=== PATIENT | male | born 1960 | race Caucasian/White ===

== ENCOUNTER 2020-06-04 16:32 | Outpatient (CLI) | payer OTHER, SELFPAY ==
[2020-06-04 16:53] LABS: Creatinine Urine 106.22 mg/dL (40-278); MALB Creatinine Ratio 12.2 mg/g (0-30); Microalbumin Urine Random < 13.0 mg/L
[2020-06-04 17:21] LABS: Alanine Aminotransferase 23 U/L (16-63); Albumin Level 4.5 g/dL (3.4-5.0); Alkaline Phosphatase 76 U/L (46-116); Anion Gap 8 mmol/L (8-16); Aspartate Amino Transferase 16 U/L (15-37); Bilirubin,Total 0.4 mg/dL (0.00-1.00); Blood Urea Nitrogen 17 mg/dL (7-18); Calcium 9.5 mg/dL (8.5-10.1); Carbon Dioxide 30 mmol/L (21-32); Chloride 102 mmol/L (98-108); Estimated Glomerular Filt Rate > 60; Glucose 98 mg/dL (70-99); Hemoglobin A1C 7.1 % (<5.7); Osmolality Calculated 291 mOsm/kg (285-295); Potassium 4.4 mmol/L (3.5-5.1); Sodium 140 mmol/L (136-145); Total Protein 6.9 g/dL (6.4-8.2)
== END 2020-06-04 16:33 | disposition home or self-care (01) ==
LOC: CHSLAB 16:34
PROVIDERS: PCP Nurse Practitioner Family; Visit Provider Nurse Practitioner Family
DX: E11.9 Type 2 diabetes mellitus without complications (principal)
CPT/HCPCS: 36415; 80053; 82043; 83036

== ENCOUNTER 2021-10-03 08:44 | Outpatient (CLI) | payer OTHER, SELFPAY ==
[2021-10-03 09:13] LABS: Basophils Absolute Auto 0.05 K/mm3 (0.00-0.10); Basophils Percent Auto 0.9 % (0.0-1.0); Eosinophils Percent Auto 3.6 % (1.0-6.0); Hematocrit 43.5 % (40.0-54.0); Hemoglobin 14.5 g/dL (14.0-18.0); Immature Granulocyte Absolute 0.01 K/mm3 (0.00-0.00); Immature Granulocyte Percent A 0.2 % (0.0-0.0); Lymphocytes Absolute Auto 1.45 K/mm3 (1.10-4.50); Mean Corpuscular HGB Conc 33.3 g/dL (32.0-36.0); Mean Corpuscular Hemoglobin 30.6 pg (27.0-31.0); Mean Corpuscular Volume 91.8 fL (78.0-102.0); Mean Platelet Volume 11.4 fl (8.7-11.0); Monocytes Absolute Auto 0.57 K/mm3 (0.10-0.90); Monocytes Percent Auto 10.2 % (2.0-11.0); Neutrophils Absolute Auto 3.3 K/mm3 (1.7-7.2); Neutrophils Percent Auto 59.1 % (50.0-70.0); Platelet Count Result 172 K/mm3 (150-420); Red Blood Count 4.74 M/mm3 (4.70-6.10); White Blood Count 5.6 K/mm3 (4.8-10.8)
[2021-10-03 09:25] LABS: Hemoglobin A1C 7.1 % (<5.7)
[2021-10-03 09:39] LABS: Alanine Aminotransferase 32 U/L (16-63); Albumin Level 4.1 g/dL (3.4-5.0); Alkaline Phosphatase 80 U/L (46-116); Anion Gap 6 mmol/L (8-16); Aspartate Amino Transferase 18 U/L (15-37); Bilirubin,Total 0.5 mg/dL (0.00-1.00); Blood Urea Nitrogen 14 mg/dL (7-18); Calcium 9.2 mg/dL (8.5-10.1); Carbon Dioxide 30 mmol/L (21-32); Chloride 103 mmol/L (98-108); Estimated Glomerular Filt Rate > 60; Glucose 221 mg/dL (70-99); Osmolality Calculated 295 mOsm/kg (285-295); Potassium 4.4 mmol/L (3.5-5.1); Sodium 139 mmol/L (136-145); Total Protein 6.8 g/dL (6.4-8.2)
== END 2021-10-03 08:45 | disposition home or self-care (01) ==
LOC: CHSLAB 08:45
PROVIDERS: PCP Nurse Practitioner Family; Visit Provider Nurse Practitioner Family
DX: E11.9 Type 2 diabetes mellitus without complications (principal); I10 Essential (primary) hypertension
CPT/HCPCS: 36415; 80053; 83036; 85025

== ENCOUNTER 2022-09-23 12:45 | Emergency (ER) | payer OTHER, SELFPAY ==
--- NOTE | 2022-09-23 13:21 | ED.WOUNDLAC ---
HPI - Wound/Laceration General Chief Complaint: Wound/Laceration Stated Complaint: left forearm lac Time Seen by Provider: 09/23/22 13:15 History of Present Illness HPI narrative: Pt stabbed self with utility knife at work. Pt on blood thinners so said bled quite a bit but now stopped. Unsure of last tetanus shot. Pt denies numbness or weakness in hand on right. Related Data Home Medications Medication Instructions Recorded Confirmed aspirin 81 mg tablet,delayed 81 mg PO DAILY 03/14/19 09/23/22 release (Adult Low Dose Aspirin) warfarin 6 mg tablet (Coumadin) 6 mg PO DAILY 03/14/19 09/23/22 Allergies Allergy/AdvReac Type Severity Reaction Status Date / Time No Known Allergies Allergy Verified 09/23/22 13:15 Review of Systems Review of Systems: All systems reviewed & are unremarkable except as noted in HPI and below PMFSH Past Medical History Medical History Aortic stenosis HTN (hypertension) Hyperlipemia Type 2 diabetes mellitus Surgical History Surgical History Hx of mitral valve replacement with mechanical valve 11/17 Social History Social History Years smoked: 29 Smoking status: Former smoker Living arrangements: with family Exam Const: General: healthy appearing Nutritional Appearance: well nourished Orientation/consciousness: patient oriented x3 Limitations: no limitations Skin: Wounds: wounds noted (small 1 cm puncture wound right forearm no active bleeding. strong radial ) Neuro: General: patient oriented x3, moves all extremities and no focal motor deficits Extrem: General: no clubbing, cyanosis or edema Psych: Mental Status: mental status grossly normal Affect: normal affect Attitude: cooperative Procedures Laceration Laceration 1: Date: 09/23/22 Time: 13:15 Site: upper extremity Side (If applicable): right Size (cm): 1 Description: linear and clean Depth: simple, single layer ====== Skin Level ====== Skin layer closed with: dermabond ====== Subcutaneous Layer ====== ====== Muscle Layer ====== ====== Tendon Layer ====== Discharge Plan Discharge Clinical Impression: Laceration Patient Disposition: Home, Self-Care Condition: Improved Instructions: Antibiotic Form, Laceration (ED), Skin Adhesive Care (ED) Prescriptions: No Action aspirin [Adult Low Dose Aspirin] 81 mg tablet,delayed release (DR/EC) 81 mg PO DAILY warfarin [Coumadin] 6 mg tablet 6 mg PO DAILY metformin 1,000 mg tablet See Rx Instructions .ROUTE .COMPLEX Qty: 180 0RF Dose Instruction: TAKE ONE TABLET BY MOUTH TWICE A DAY Rx Instructions: TAKE ONE TABLET BY MOUTH TWICE A DAY rosuvastatin 40 mg tablet See Rx Instructions .ROUTE .COMPLEX Qty: 90 0RF Dose Instruction: TAKE ONE TABLET BY MOUTH DAILY Rx Instructions: TAKE ONE TABLET BY MOUTH DAILY Follow-up/Referrals: Albert Cadena DO [Primary Care Provider] -
[2022-09-23] MEDS: TETANUS,DIPHTHERIA,AC PERTUSSIS ADULT 0.5 ML (ADACEL) IM (13:35)
[2022-09-23 13:38] VITALS: BP 155/87; PULSE 102; RESP 16; TEMP 36.8; O2SAT 97
--- NOTE | 2022-09-23 13:45 | PC.NURSE ---
assisted dr. lewis/ heikeabstefano application
== END 2022-09-23 13:42 | disposition home or self-care (01) ==
LOC: CHSED 13:29
PROVIDERS: Emergency Provider Emergency Medicine; PCP Family Medicine
DX: S51.812A Laceration without foreign body of left forearm, initial encounter (principal); E78.5 Hyperlipidemia, unspecified; I10 Essential (primary) hypertension; E11.9 Type 2 diabetes mellitus without complications; Z79.01 Long term (current) use of anticoagulants; Z23 Encounter for immunization; Z79.82 Long term (current) use of aspirin; Z87.891 Personal history of nicotine dependence; W26.0XXA Contact with knife, initial encounter
CPT/HCPCS: 12001; 90471; 90715; 99282

== ENCOUNTER 2023-02-16 15:14 | Outpatient (CLI) | payer OTHER, SELFPAY ==
[2023-02-16 15:32] LABS: Basophils Absolute Auto 0.05 K/mm3 (0.00-0.10); Basophils Percent Auto 0.8 % (0.0-1.0); Eosinophils Absolute Auto 0.13 K/mm3 (0.02-0.50); Eosinophils Percent Auto 2.2 % (1.0-6.0); Hematocrit 41.9 % (40.0-54.0); Hemoglobin 13.8 g/dL (14.0-18.0); Immature Granulocyte Absolute 0.02 K/mm3 (0.00-0.00); Immature Granulocyte Percent A 0.3 % (0.0-0.0); Lymphocytes Absolute Auto 1.65 K/mm3 (1.10-4.50); Lymphocytes Percent Auto 27.6 % (18.0-42.0); Mean Corpuscular HGB Conc 32.9 g/dL (32.0-36.0); Mean Corpuscular Hemoglobin 30.5 pg (27.0-31.0); Mean Corpuscular Volume 92.7 fL (78.0-102.0); Mean Platelet Volume 11.4 fl (8.7-11.0); Monocytes Absolute Auto 0.59 K/mm3 (0.10-0.90); Monocytes Percent Auto 9.9 % (2.0-11.0); Neutrophils Absolute Auto 3.5 K/mm3 (1.7-7.2); Neutrophils Percent Auto 59.2 % (50.0-70.0); Platelet Count Result 166 K/mm3 (150-420); Red Blood Count 4.52 M/mm3 (4.70-6.10); Red Cell Distribution Width 12.4 % (11.6-14.4)
[2023-02-16 16:41] LABS: Hemoglobin A1C 7.8 % (<5.7)
[2023-02-16 16:42] LABS: Anion Gap 6 mmol/L (8-16); Aspartate Amino Transferase 10 U/L (15-37); Bilirubin,Total 0.2 mg/dL (0.00-1.00); Blood Urea Nitrogen 16 mg/dL (7-18); Calcium 9.1 mg/dL (8.5-10.1); Carbon Dioxide 34 mmol/L (21-32); Chloride 102 mmol/L (98-108); Estimated Glomerular Filt Rate > 60; Glucose 187 mg/dL (70-99); Osmolality Calculated 300 mOsm/kg (285-295); Potassium 4.2 mmol/L (3.5-5.1); Sodium 142 mmol/L (136-145)
[2023-02-16 16:43] LABS: Alanine Aminotransferase 26 U/L (16-63); Albumin Level 3.9 g/dL (3.4-5.0); Alkaline Phosphatase 97 U/L (46-116); Cholesterol 152 mg/dL (0-200); HDL Direct 59 mg/dL (40-60); LDL Cholesterol Calculated 69 mg/dL (<130); Total Protein 6.4 g/dL (6.4-8.2); Triglycerides 119 mg/dL (0-150)
== END 2023-02-16 15:15 | disposition home or self-care (01) ==
LOC: CHSLAB 15:16
PROVIDERS: PCP Nurse Practitioner Family; Visit Provider Nurse Practitioner Family
DX: Z13.6 Encounter for screening for cardiovascular disorders (principal); E78.5 Hyperlipidemia, unspecified; E11.9 Type 2 diabetes mellitus without complications; I10 Essential (primary) hypertension
CPT/HCPCS: 36415; 80053; 80061; 83036; 85025

== ENCOUNTER 2023-05-18 10:26 | Outpatient (CLI) | payer OTHER, SELFPAY ==
[2023-05-18 11:07] LABS: Hemoglobin A1C 7.2 % (<5.7)
== END 2023-05-18 10:27 | disposition home or self-care (01) ==
LOC: CHSLAB 10:27
PROVIDERS: PCP Family Medicine; Visit Provider Nurse Practitioner Family
DX: E11.9 Type 2 diabetes mellitus without complications (principal)
CPT/HCPCS: 36415; 83036

== ENCOUNTER 2023-08-19 12:48 | Outpatient (CLI) | payer OTHER, SELFPAY ==
[2023-08-19 13:21] LABS: Creatinine Urine 47.41 mg/dL (40-278); MALB Creatinine Ratio 27.4 mg/g (0-30); Microalbumin Urine Random < 13.0 mg/L
[2023-08-19 13:23] LABS: Hemoglobin A1C 7.5 % (<5.7)
== END 2023-08-19 12:49 | disposition home or self-care (01) ==
LOC: CHSLAB 12:50
PROVIDERS: PCP Family Medicine; Visit Provider Nurse Practitioner Family
DX: E11.9 Type 2 diabetes mellitus without complications (principal)
CPT/HCPCS: 36415; 82043; 83036

== ENCOUNTER 2023-11-22 12:58 | Outpatient (CLI) | payer OTHER, SELFPAY ==
[2023-11-22 13:23] LABS: Hemoglobin A1C 6.6 % (<5.7)
== END 2023-11-22 12:59 | disposition home or self-care (01) ==
PROVIDERS: PCP Nurse Practitioner Family; Visit Provider Nurse Practitioner Family
DX: E11.9 Type 2 diabetes mellitus without complications (principal)
CPT/HCPCS: 36415; 83036

== ENCOUNTER 2024-03-07 11:22 | Outpatient (CLI) | payer OTHER, SELFPAY ==
[2024-03-07 11:57] LABS: Hemoglobin A1C 6.6 % (<5.7)
[2024-03-08 10:16] LABS: Basophils Absolute Auto 0.06 K/mm3 (0.00-0.10); Basophils Percent Auto 0.8 % (0.0-1.0); Eosinophils Percent Auto 1.4 % (1.0-6.0); Hematocrit 47.2 % (40.0-54.0); Hemoglobin 15.3 g/dL (14.0-18.0); Immature Granulocyte Absolute 0.02 K/mm3 (0.00-0.00); Immature Granulocyte Percent A 0.3 % (0.0-0.0); Lymphocytes Absolute Auto 1.43 K/mm3 (1.10-4.50); Lymphocytes Percent Auto 20.2 % (18.0-42.0); Mean Corpuscular HGB Conc 32.4 g/dL (32-36); Mean Corpuscular Hemoglobin 30.7 pg (27.0-31.0); Mean Corpuscular Volume 94.6 fL (78.0-102.0); Monocytes Absolute Auto 0.67 K/mm3 (0.10-0.90); Monocytes Percent Auto 9.5 % (2.0-11.0); Neutrophils Percent Auto 67.8 % (50.0-70.0); Platelet Count Result 178 K/mm3 (150-420); Red Blood Count 4.99 M/mm3 (4.70-6.10); Red Cell Distribution Width 12.9 % (11.6-14.4); White Blood Count 7.1 K/mm3 (4.8-10.8)
[2024-03-08 10:27] LABS: Alanine Aminotransferase 31 U/L (16-63); Albumin Level 4.2 g/dL (3.4-5.0); Alkaline Phosphatase 90 U/L (46-116); Anion Gap 6 mmol/L (4-12); Aspartate Amino Transferase 17 U/L (15-37); Bilirubin,Total 0.5 mg/dL (0.00-1.00); Blood Urea Nitrogen 13 mg/dL (7-18); Calcium 9.4 mg/dL (8.5-10.1); Carbon Dioxide 31 mmol/L (21-32); Chloride 103 mmol/L (98-108); Cholesterol 157 mg/dL (0-200); Estimated Glomerular Filt Rate > 60; Glucose 120 mg/dL (70-99); HDL Direct 65 mg/dL (40-60); LDL Cholesterol Calculated 70 mg/dL (<130); Osmolality Calculated 291 mOsm/kg (285-295); Potassium 4.3 mmol/L (3.5-5.1); Sodium 140 mmol/L (136-145); Total Protein 6.4 g/dL (6.4-8.2); Triglycerides 110 mg/dL (0-150)
[2024-03-13 15:27] LABS: Thyroid Stimulating Hormone Reflex 1.84 u/IU/mL (0.36-3.74)
== END 2024-03-07 11:23 | disposition home or self-care (01) ==
LOC: CHSLAB 11:23
PROVIDERS: PCP Nurse Practitioner Family; Visit Provider Nurse Practitioner Family
DX: Z00.00 Encounter for general adult medical examination without abnormal findings (principal); E11.9 Type 2 diabetes mellitus without complications
CPT/HCPCS: 36415; 80053; 80061; 83036; 84443; 85025

== ENCOUNTER 2024-06-05 09:58 | Outpatient (CLI) | payer BC, SELFPAY ==
[2024-06-05 10:37] LABS: Microalbumin Urine Random < 13.0 mg/L
[2024-06-05 10:39] LABS: Hemoglobin A1C 6.2 % (<5.7)
== END 2024-06-05 09:59 | disposition home or self-care (01) ==
LOC: CHSLAB 10:00
PROVIDERS: PCP Nurse Practitioner Family; Visit Provider Nurse Practitioner Family
DX: E11.9 Type 2 diabetes mellitus without complications (principal)
CPT/HCPCS: 36415; 82043; 83036

== ENCOUNTER 2024-09-13 14:53 | Outpatient (CLI) | payer BC, SELFPAY ==
[2024-09-13 15:23] LABS: Creatinine Urine 73.8 mg/dL
[2024-09-13 15:24] LABS: Hemoglobin A1C 6.6 % (<5.7)
[2024-09-13 15:26] LABS: MALB Creatinine Ratio 10.8 mg/g (0-30)
[2024-09-13 15:36] LABS: Albumin Level 4.5 g/dL (3.5-5.1); Anion Gap 5 mmol/L (4-12); Blood Urea Nitrogen 16 mg/dL (9-20); Calcium 9.1 mg/dL (8.4-10.2); Carbon Dioxide 29 mmol/L (22-30); Chloride 105 mmol/L (98-107); Estimated Glomerular Filt Rate > 60; Glucose 188 mg/dL (65-110); Osmolality Calculated 294 mOsm/kg (285-295); Phosphorus 3.5 mg/dL (2.5-4.5); Potassium 4.1 mmol/L (3.4-5.0); Sodium 139 mmol/L (137-145)
--- OUTSIDE RECORDS SUMMARY | 2024-09-13 17:26 | XMS_ITS | Encounter Summary ---
Author Organization [facility] Healthcare Address [address] [place] [address] Care Team Providers Care Senior Escrow Officer Name Role Phone Albert Cadena DO Primary Care Provider Encounter Details Date Type Department Care Team (Latest Contact Info) Description 07/26/2024 Results Follow-Up [facility] Cardiology [address] [place] [address] Leo Reynolds MD [address] [facility] [place] [address] [facility], [place] [address] [place] [address] Transthoracic Echo (TTE) Complete W Doppler/CF Social History Tobacco Use Types Packs/Day Years Used Date Smoking Tobacco: Former Cigarettes Q uit: 2009 Smokeless Tobacco: Never Alcohol Use Standard Drinks/Week Comments Yes 12 (1 standard drink = 0.6 oz pu re alcohol) Sex and Gender Information Value Date Recorded Sex Assigned at Not on file 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
--- OUTSIDE RECORDS SUMMARY | 2024-09-13 17:26 | XMS_ITS | Referral Summary ---
Author Organization [place] [address] [address] [address] Care Team Providers Care Airplane Flight Attendant Name Role Phone Albert Cadena DO Primary Care Provider Encounters Date Type Department Care Team Description 08/18/2024 Anticoagulation Visit [facility] Cardiology [address] [place] [address] [address] [place] [phone] Supriya Cisneros RN S/P aortic valve replacement with metallic valve (Primary Dx) 07/26/2024 Results Follow-Up [facility] Cardiology [address] [place] [address] [address] [place] [address] Meche Moreno MD Transthoracic Echo (TTE) Complete W Doppler/CF 07/21/2024 Anticoagulation Visit [place] [address] [place] [phone] Meche Kaiser RN S/P aortic valve replacement with metallic valve (Primary Dx) 07/17/2024 1:00 PM CDT Ancillary Procedure [facility] Cardiology [address] [place] [address] [address] [place] [address] S/P aortic valve replacement with metallic valve; Pulmonary HTN (HCC); Hypertension associated with diabetes (HCC) 06/23/2024 Anticoagulation Visit [facility] Cardiology [address] [place] [address] [address] [place] [address] Susanne Rhodes, SOWMYA S/P aortic valve replacement with metallic valve (Primary Dx) 06/19/2024 Orders Only [facility] Cardiology [address] [place] [address] Provider, MD Jacqueline from Last 3 Months Allergies No known active allergies Medications aspirin 81 mg tablet take 1 tablet by oral route every day 0 0 04/24/2016 Active rosuvastatin (CRESTOR) 40 mg tablet Take 1 tablet (40 mg total) by mouth daily. 30 tablet 11 04/06/2018 Active metFORMIN (GLUCOPHAGE) 500 mg tablet Take 1 tablet (500 mg total) by mouth daily 10/01/2018 Active empagliflozin (JARDIANCE) 25 mg tablet 1 tablet (25 mg total) 04/19/2023 Active semaglutide (Ozempic) 0.25 mg or 0.5 mg(2 mg/1.5 mL) pen injector injection 12/17/2023 Active warfarin (COUMADIN) 5 mg tabletIndication s:S/P aortic valve replacement with metallic valve TAKE ONE TABLET BY MOUTH DAILY 30 tablet 1 07/25/2024 Active Active Problems Problem Noted Date Diagnosed Date Pulmonary HTN 04/17/2019 H/O bicuspid aortic valve 04/17/2019 Prosthetic valve regurgitation 04/06/2018 Chronic anticoagulation 12/24/2017 Aortic regurgitation due to bicuspid aortic valv e 01/22/2017 Mixed diabetic hyperlipidemi a associated with type 2 diabetes mellitus ([facility]) 04/24/2016 Overview (07/09/2016): DM type 2 with diabetic dyslipidemia Hypertension associated with diabetes 01/07/2016 Overview (07/09/2016): HTN (hypertension), benign Dyspnea on exertion 01/07/2016 Overview (07/09/2016): FRIAS (dyspnea on exertion) S/P aortic valve replacement with metallic valve Type 2 diabetes mellitus wit hout complication, without long-term current use of insulin Pneumothorax on right Resolved Problems Problem Noted Date Diagnosed Date Resolved Date Bicuspid aortic valve 01/07/20162022 Overview (07/09/2016): Bicuspid aortic valve Aortic valve stenosis 01/07/20162022 Overview (07/09/2016): Aortic stenosis with bicuspid valve Chest pain 01/07/2016 05/29/2022 Overview (07/09/2016): Chest pain in adult Dyslipidemia 03/26/2014 05/29/2022 Overview (07/09/2016): Dyslipidemia Social History Tobacco Use Types Packs/Day Years Used Date Smoking Tobacco: Former Cigarettes Q uit: 2009 Smokeless Tobacco: Never Tobacco Cessation:Counseling Given: Not Answered Alcohol Use Standard Drinks/Week Comments Yes 12 (1 standard drink = 0.6 oz pu re alcohol) Sex and Gender Information Value Date Recorded Sex Assigned at Not on file 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 Gender Identity Not on file Sexual Orientation Not on file Last Filed Vital Signs Vital Sign Reading Time Taken Comments Blood Pressure 139/68 06/12/2024 1:15 PM CDT Pulse 70 06/12/2024 10:17 AM CDT Temperature 36.6 C (97.8 F) 11/13/2019 8:15 AM CDT Respiratory Rate 16 12/23/2017 1:49 PM CDT Oxygen Saturation 98% 06/12/2024 10:17 AM CDT Inhaled Oxygen Concentration - - Weight 81.6 kg (180 lb) 06/12/2024 10:17 AM CDT Height 182.9 cm (6') 06/12/2024 10:17 AM CDT Body Mass Index 24.41 06/12/2024 10:17 AM CDT Plan of Treatment Not on file Medical Devices Implanted Type [facility] Administrator Device Identifier Shelf Expiration Date Model / Serial / Lot Medtronic Card Vasc Surgery [id number] Streamline 53cm Temporary Bipolar Coaxial Myocardium Lead Pacing Latex Free - [id number] Implanted:Qty: 1 on 11/17/2017 by Andrew Turner MD at [facility] Other - see comments N/A: Heart Medtronic Card Vasc Surgery 06/11/2019 [id number] / / Valve Aortic On-X Conform-X Titanium Carbon Ptfe Od30 Mm Cylindrical H11.9 Mm H14.7 Mm Od21 Mm Odsec19.4 Mm Heart Mechanical Sewing Ring Extend Yee Intrasupra Annular - [id number] - [id number] Implanted:Qty: 1 on 11/17/2017 by Andrew Turner MD at [facility] Prosthetic Valve N/A: Heart On-X Intrnl 01/20/2023 [id number] / [id number] / Description:Aortic valve Procedures Procedure Name Priority Date/Time Associated Diagnosis Comments PROTIME-INR Routine 08/18/2024 PROTIME-INR Routine 07/21/2024 TRANSTHORACIC ECHO (TTE) COMPLETE W DOPPLER/CF WO CONTRAST Routine 07/17/2024 1:23 PM CDT S/P aortic valve replacement with metallic valve Pulmonary HTN (HCC) Hypertension associated with diabetes (HCC) PROTIME-INR Routine 06/23/2024 LIPID PANEL Routine 03/07/2024 11:40 AM TITLE PROCESSOR EGFR Routine 11/23/2017 5:53 AM CDT from Last 3 Months or Most Recently Relevant to Health Maintenance Results * (ABNORMAL) Protime-INR (08/18/2024) INR 2.40(A) 0.90 - 1.10 EXTERNAL LAB Blood Historical Provider LAB BLOOD ORDERABLES Yu l Result EXTERNAL LAB * (ABNORMAL) Protime-INR (07/21/2024) INR 2.30(A) 0.90 - 1.10 EXTERNAL LAB Blood 07/21/2024 Historical Provider LAB BLOOD ORDERABLES Yu l Result EXTERNAL LAB * TRANSTHORACIC ECHO (TTE) COMPLETE W DOPPLER/CF WO CONTRAST (07/17/2024 1:23 PM CDT) Anatomical Region Laterality Modality Ultrasound 07/17/2024 12:5 9 PM CDT Narrative 07/17/2024 1:56 PM CDT [facility] Cardiology [address], [place] [address] [address] [facility] [address], [place] [address] P:[phone] P:[phone] Echocardiographic Report Patient Name: WALTER GALLEGOS L : 1960 Study Date: 07/17/2024 12:59:24 PM Gender: M Tech: Location: [facility] Provider: MECHE MORENO Height(Cm): 183 BSA: 2.04 Weight(Kg): 81.6 Heart Rate: 84 BP: 139 / 68 Quality: Good Order Provider: MECHE MORENO PROCEDURES: Echocardiographic Report: Transthoracic echocardiogram with complete 2D, M-Mode, and color Doppler examination. With Strain Analysis. INDICATIONS: Aortic Valve Replacement, Diabetes, Hypertension, and I27.20 Pulmonary hypertension, unspecified. MEASUREMENTS: 2D/MM Value Range Doppler Value Range EF Mod BP 67 % [ 52 - 72 ] TOMMY Vmax 2.13 cm2 [ 2.00 - 4.00 ] EF Teich MM 78 % [ 52 - 72 ] AV Mean PG 9 mmHg LVIDd 2D 4.79 cm [ 4.20 - 5.80 ] AV Peak Phil 2.06 m/s [ 1.00 - 1.70 ] LVIDd MM 4.99 cm [ 4.20 - 5.80 ] AV Peak PG 17 mmHg LVIDs 2D 3.26 cm [ 2.50 - 4.00 ] AV VTI 41.22 cm LVIDs MM 2.65 cm [ 2.50 - 4.00 ] LVOT Diam 1.96 cm [ 1.70 - 2.10 ] LVPWd 2D 0.98 cm [ 0.60 - 1.00 ] LVOT Peak Phil 1.45 m/s [ 0.70 - 1.10 ] LVPWd MM 0.89 cm [ 0.60 - 1.00 ] LVOT VTI 26.91 cm IVSd 2D 1.05 cm [ 0.60 - 1.00 ] MV E Peak Phil 1.08 m/s [ 0.60 - 1.30 ] IVSd MM 0.95 cm [ 0.60 - 1.00 ] MV A Peak Phil 0.72 m/s [ 1.00 - 1.20 ] LA Dimension MM 3.52 cm [ 3.00 - 4.00 ] MV Decel Time 218 msec [ 104 - 258 ] AoR Diam MM 3.03 cm [ 3.10 - 3.70 ] PV Peak Phil 1.16 m/s [ 0.40 - 0.80 ] LA Volume Index 22 cc/m2 [ 16 - 34 ] TR Peak Phil 2.55 m/s [ 1.00 - 2.80 ] TR Peak PG 26 mmHg RVSP 34.00 mmHg [ 10.00 - 36.00 ] Lateral E` 0.14 m/s [ 0.10 - 0.15 ] E` 0.07 m/s E/E` 8 2D/MM Value Range Doppler Value Range - FINDINGS: Interpretation Site: Exam was interpreted at [facility]. Left Ventricle: Normal left ventricular systolic function. No focal wall motion abnormalities. Normal left ventricular size. Mild concentric left ventricular hypertrophy. Indeterminate diastolic function. Ejection fraction is measured at 67 %. Global Longitudinal Strain is -18 %. GLS is borderline. Right Ventricle: Normal right ventricular size. Normal right ventricular systolic function. Left Atrium: The left atrium is normal in size. Right Atrium: The right atrium is normal in size. Atrial Septum: Normal atrial septum. Mitral Valve: Mild mitral annular calcification. Mild mitral valve regurgitation. There is no hemodynamically significant mitral stenosis by Doppler. Aortic Valve: Mean gradient of 9.0 mmHg. Valve area of 2.1 cm2. No aortic regurgitation. Normal appearing aortic valve prosthesis. Gradients normal for valve type and size. Tricuspid Valve: Normal appearance of the tricuspid valve. Estimated peak RVSP is 34 mmHg. Mild tricuspid regurgitation. Pulmonic Valve: Normal appearance of the pulmonic valve. No evidence of pulmonic regurgitation. Pericardium: Normal pericardium with no significant pericardial effusion. Aorta: Sinus of Valsalva is normal. IVC: Normal size and normal respiratory collapse consistent with normal right atrial pressure (<5 mmHg). Pulmonary Artery: Normal pulmonary artery size. CONCLUSIONS: Normal left ventricular systolic function. No focal wall motion abnormalities. Normal left ventricular size. Mild concentric left ventricular hypertrophy. Indeterminate diastolic function. Ejection fraction is measured at 67 %. Global Longitudinal Strain is -18 %. GLS is borderline. Mild mitral annular calcification. Mild mitral valve regurgitation. Mean gradient of 9.0 mmHg. Valve area of 2.1 cm2. No aortic regurgitation. Normal appearing aortic valve prosthesis. Gradients normal for valve type and size. Estimated peak RVSP is 34 mmHg. Mild tricuspid regurgitation. Electronically Signed By: Dr. Mya Mcdonald [facility] 07/17/2024 1:56:01 PM CDT Procedure Note Mya Mcdonald MD - 07/17/2024 [facility] Cardiology [address] [facility] [address] [id number] [address] [facility] [address], [place] [address] P:[phone] P:[phone] Echocardiographic Report Patient Name: WALTER GALLEGOS L : 1960 Study Date: 07/17/2024 12:59:24 PM Gender: M Tech: Location: [facility] Provider: MECHE MORENO Height(Cm): 183 BSA: 2.04 Weight(Kg): 81.6 Heart Rate: 84 BP: 139 / 68 Quality: Good Order Provider: MECHE MORENO PROCEDURES: Echocardiographic Report: Transthoracic echocardiogram with complete 2D, M-Mode, and color Dopplerexamination. With Strain Analysis. INDICATIONS: Aortic Valve Replacement, Diabetes, Hypertension, and I27.20 Pulmonaryhypertension, unspecified. MEASUREMENTS: 2D/MM Value Range Doppler ValueRange EF Mod BP 67 % [ 52 - 72 ] TOMMY Vmax 2.13cm2 [ 2.00 - 4.00 ] EF Teich MM 78 % [ 52 - 72 ] AV Mean PG 9mmHg LVIDd 2D 4.79 cm [ 4.20 - 5.80 ] AV Peak Phil 2.06m/s [ 1.00 - 1.70 ] LVIDd MM 4.99 cm [ 4.20 - 5.80 ] AV Peak PG 17mmHg LVIDs 2D 3.26 cm [ 2.50 - 4.00 ] AV VTI 41.22cm LVIDs MM 2.65 cm [ 2.50 - 4.00 ] LVOT Diam 1.96 cm[ 1.70 - 2.10 ] LVPWd 2D 0.98 cm [ 0.60 - 1.00 ] LVOT Peak Phil 1.45m/s [ 0.70 - 1.10 ] LVPWd MM 0.89 cm [ 0.60 - 1.00 ] LVOT VTI 26.91cm IVSd 2D 1.05 cm [ 0.60 - 1.00 ] MV E Peak Phil 1.08m/s [ 0.60 - 1.30 ] IVSd MM 0.95 cm [ 0.60 - 1.00 ] MV A Peak Phil 0.72m/s [ 1.00 - 1.20 ] LA Dimension MM 3.52 cm [ 3.00 - 4.00 ] MV Decel Time 218msec [ 104 - 258 ] AoR Diam MM 3.03 cm [ 3.10 - 3.70 ] PV Peak Phil 1.16m/s [ 0.40 - 0.80 ] LA Volume Index 22 cc/m2 [ 16 - 34 ] TR Peak Phil 2.55m/s [ 1.00 - 2.80 ] TR Peak PG 26 mmHg RVSP 34.00 mmHg [ 10.00 - 36.00 ] Lateral E` 0.14 m/s [ 0.10 - 0.15 ] E` 0.07 m/s E/E` 8 2D/MM Value Range Doppler ValueRange - FINDINGS: Interpretation Site: Exam was interpreted at [facility]. Left Ventricle: Normal left ventricular systolic function. No focal wall motionabnormalities. Normal left ventricular size. Mild concentric left ventricular hypertrophy.Indeterminate diastolic function. Ejection fraction is measured at 67 %. GlobalLongitudinal Strain is -18 %. GLS is borderline. Right Ventricle: Normal right ventricular size. Normal right ventricular systolicfunction. Left Atrium: The left atrium is normal in size. Right Atrium: The right atrium is normal in size. Atrial Septum: Normal atrial septum. Mitral Valve: Mild mitral annular calcification. Mild mitral valve regurgitation. Thereis no hemodynamically significant mitral stenosis by Doppler. Aortic Valve: Mean gradient of 9.0 mmHg. Valve area of 2.1 cm2. No aortic regurgitation.Normal appearing aortic valve prosthesis. Gradients normal for valve type andsize. Tricuspid Valve: Normal appearance of the tricuspid valve. Estimated peak RVSP is 34 mmHg.Mild tricuspid regurgitation. Pulmonic Valve: Normal appearance of the pulmonic valve. No evidence of pulmonicregurgitation. Pericardium: Normal pericardium with no significant pericardial effusion. Aorta: Sinus of Valsalva is normal. IVC: Normal size and normal respiratory collapse consistent with normal rightatrial pressure (<5 mmHg). Pulmonary Artery: Normal pulmonary artery size. CONCLUSIONS: Normal left ventricular systolic function. No focal wall motionabnormalities. Normal left ventricular size. Mild concentric left ventricular hypertrophy.Indeterminate diastolic function. Ejection fraction is measured at 67 %. GlobalLongitudinal Strain is -18 %. GLS is borderline. Mild mitral annular calcification. Mild mitral valve regurgitation. Mean gradient of 9.0 mmHg. Valve area of 2.1 cm2. No aortic regurgitation.Normal appearing aortic valve prosthesis. Gradients normal for valve type andsize. Estimated peak RVSP is 34 mmHg. Mild tricuspid regurgitation. Electronically Signed By: Dr. Mya Mcdonald [facility] 07/17/2024 1:56:01 PM CDT us Meche Moreno MD CV ECHO PROCEDURES Final Result * (ABNORMAL) Protime-INR (06/23/2024) INR 2.50(A) 0.90 - 1.10 EXTERNAL LAB Blood Historical Provider MD LAB BLOOD ORDERABLES Yu l Result Performing Organization Address City/[facility]/ZIP Co de Phone Number EXTERNAL LAB * Lipid panel (03/07/2024 11:40 AM TITLE PROCESSOR) SCRIBED Cholesterol, Total 157 <200 EXTERNAL LAB SCRIBED HDL 65 >40 EXTERNAL LAB SCRIBED LDL 70 <100 EXTERNAL LAB SCRIBED Triglycerides 110 <150 EXTERNAL LAB Blood Historical Provider MD LAB BLOOD ORDERABLES Edit ed Result - Final Performing Organization Address [facility] Co de Phone Number EXTERNAL LAB * eGFR (11/23/2017 5:53 AM CDT) Pathologist [facility] eGFR 94 mL/min/1.7 3 m2 [place] [facility] Comment: Interpretive Data Reference Interval Normal >/= 90 mL/min/1.73m2 Mildly decreased* 60 - 89 mL/min/1.73m2 Mildly to moderately decreased 45 - 59 mL/min/1.73m2 Moderately to severely decreased 30 - 44 mL/min/1.73m2 Severely decreased 15 - 29 mL/min/1.73m2 Kidney Failure < 15 mL/min/1.73m2 *Relative to young adult level If -Australian multiply value by 1.16. Estimated glomerular filtration rate is determined by the CKD-EPI equation recommended by the National Kidney Foundation (KDIGO 2012 Clinical Practice Guideline for the Evaluation and Management of Chronic Kidney Disease. Kidney Intnl Suppl Apr 2012;3:1). The CKD-EPI equation should not be used for patients with unstable renal function and has not been validated in children and those over 70. Current interpretive data was last reviewed 2015. Blood specimen (specimen) 11/23/2017 5:53 AM CDT 11/23/2017 6:02 AM CDT Narrative [facility] - 11/23/2017 6:20 AM CDT Andrew Turner MD LAB BLOOD ORDERAB[place] [address] Jaime Holman Department [place] [address] from Last 3 Months or Most Recently Relevant to Health Maintenance Insurance [facility] [facility]US [facility] Advance Directives For more information, please contact: [phone] * Full Code (Latest Code Status on File) Date Activated Date Inactivated Comments 11/17/2017 6:54 PM 11/23/2017 6:22 PM Care Teams Airplane Flight Attendant Relationship Specialty Start Date End Date Albert Cadena DO [address] [place] [address] PCP - General Family Medicine 05/24/20
--- OUTSIDE RECORDS SUMMARY | 2024-09-13 17:26 | XMS_ITS | Encounter Summary ---
Author Organization [facility] Healthcare Address [address] [place] [address] Care Team Providers Care Realty Specialist Name Role Phone Tavo Johnson MD Primary Care Provider Piter Urrutia MD Primary Care Provider [phone] Albert Cadena DO Primary Care Provider Encounter Details Date Type Department Care Team (Late st Contact Info) Description 02/28/2018 Orders Only [facility] Health Information Management [address] [place] [id number] Scanning, Provider Social History Tobacco Use Types Packs/Day Years Used Date Smoking Tobacco: Former Cigarettes Q uit: 2009 Smokeless Tobacco: Never Alcohol Use Standard Drinks/Week Comments Yes 18 (1 standard drink = 0.6 oz pu re alcohol) Sex and Gender Information Value Date Recorded Sex Assigned at Not on file 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 Gender Identity Not on file Sexual Orientation Not on file documented as of this encounter Plan of Treatment Not on file documented as of this encounter Procedures Procedure Name Priority Date/Time Associated Diagnosis Comments SCAN - LABS 02/28/2018 documented in this encounter Results * SCAN - LABS (02/28/2018) us Provider Scanning Final Result documented in this encounter Visit Diagnoses Not on filedocumented in this encounter Care Teams Realty Specialist Relationship Specialty Start Date End Date Tavo Johnson MD [address] [place] [address] PCP - General 12/31/15 10/10/18 Piter Urrutia MD [address] [place] [address] PCP - General Family Medicine 10/11/18 05/23/20 Albert Cadena DO [address] [place] [address] PCP - General Family Medicine 05/24/20 documented as of this encounter
--- OUTSIDE RECORDS SUMMARY | 2024-09-13 17:26 | XMS_ITS | Clinical Summary ---
Author Organization [facility] [place] [address] Address [address] [place] [address] Care Team Providers Care Audio Visual Tech Name Role Phone Albert Cadena DO Primary Care Provider Allergies No known active allergies Medications aspirin [...] a associated with type 2 diabetes mellitus ([facility]/HCC) 04/24/2016 Overview (07/09/2016): DM type 2 with [...] adult Dyslipidemia 03/26/2014 05/29/2022 Overview (07/09/2016): Dyslipidemia Encounters Date Type Department Care Team Description 08/18/2024 Anticoagulation Visit [facility] Cardiology [address] [facility] [address] [place] [phone] Supriya Cisneros RN S/P aortic valve replacement with metallic valve (Primary Dx) 07/26/2024 Results Follow-Up [facility] Cardiology [address] [place] [address] [address] [place] [phone] Meche Moreno MD Transthoracic Echo (TTE) Complete W Doppler/CF 07/21/2024 Anticoagulation Visit [facility] [address] [facility] [address] [place] [phone] Meche Kaiesr RN S/P aortic valve replacement with metallic valve (Primary Dx) 07/17/2024 1:00 PM CDT Ancillary Procedure [facility] [address] [place] [phone] S/P aortic valve replacement with metallic valve; Pulmonary HTN (HCC); Hypertension associated with diabetes (HCC) 06/23/[address] [facility] Medical [facility] Cardiology [address] [place] [address] Susanne Rhodes RN S/P aortic valve replacement with metallic valve (Primary Dx) 06/19/2024 Orders Only [facility] Cardiology [address] [place] [address] Provider, MD Jacqueline from Last 3 Months Surgical History Surgery Date Site/Laterality Comments CT CHEST TUBE INSERTION LEFT 11/19/2017 N/A CARDIAC VALVE REPLACEMENT [id number] Medical History Medical History Date Comments Hx Other Medical Valvular Heart Disease severe Hypertension Hypertension Fracture of forearm, closed no s ugery, anesthesia used to set fracture and cast. PONV (postoperative nausea and vomiting) Motion sickness Hyperlipidemia Diabetes (HCC) Type 2 diabetes mellitus (HCC) Family History Medical History Relation Name Comments Heart disease Father Per Hypertension Father Per Hypertension Mother Terrie Valvular heart disease Mother Terrie Werner lar heart disease; Relation Name Status Comments Father Per Mother Terrie Social History Tobacco Use Types Packs/Day Years Used Date Smoking Tobacco: Former Cigarettes Q uit: 2009 Smokeless Tobacco: Never Tobacco Cessation:Counseling Given: Not Answered Alcohol Use Standard Drinks/Week Comments Yes 12 (1 standard drink = 0.6 oz pu re alcohol) Sex and Gender Information Value Date Recorded Sex Assigned at Not on file 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 Gender Identity Not on file Sexual Orientation Not on file Obstetrics History Last Filed Vital Signs Vital Sign Reading [...] 06/12/2024 10:17 AM CDT Plan of Treatment Health Maintenance Due Date Last Done Comments Albumin Creatinine Ratio, Urine 1960 Colon Cancer Screening-Colonoscopy 1960 Depression Screening 1960 Hemoglobin A1C 1960 Hepatitis C Screening 1960 Prostate Cancer Screening-PSA 1960 Dilated Eye Exam 1960 Foot Exam 1960 DTaP/Tdap/Td Vaccine (1 - Tdap) 08/16/1971 Hepatitis B Screening 1978 Regular Well Visit/Exam 18-64 1978 Pneumococcal vaccine <65 (1 of 2 - PCV) 08/16/1979 Zoster Vaccine (1 of 2) 2010 eGFR 11/23/2018 11/23/2017, 11/04, 11/21/2017, Additional history exists Influenza Vaccine (Season Ended) 2024 03/14/20 19 Lipid Panel 03/07/2025 03/07/2024, 07/2023, 05/29/2022, Additional history exists Medical Devices Implanted Type Area Emergency Vehicle Operations Instructor Device Identifier Shelf Expiration Date Model / Serial / Lot Medtronic Card Vasc Surgery [id number] Streamline 53cm Temporary Bipolar Coaxial Myocardium Lead Pacing Latex Free - [id number] Implanted:Qty: 1 on 11/17/2017 by Andrew Turner MD at [facility] Other - see comments N/A: Heart Medtronic Card Vasc Surgery 06/11/2019 [id number] / / Valve Aortic On-X Conform-X Titanium Carbon Ptfe Od30 Mm Cylindrical H11.9 Mm H14.7 Mm Od21 Mm Odsec19.4 Mm Heart Mechanical Sewing Ring Extend Yee Intrasupra Annular - [id number] - [id number] Implanted:Qty: 1 on 11/17/2017 by Andrew Turner MD at [facility] Prosthetic Valve N/A: Heart On-X Intrnl 01/20/2023 [id number] / [id number] / Description:Aortic valve Procedures Procedure Name Priority Date/Time Associated Diagnosis Comments PROTIME-INR Routine 08/18/2024 PROTIME-INR Routine 07/21/2024 TRANSTHORACIC ECHO (TTE) COMPLETE W DOPPLER/CF WO CONTRAST Routine 07/17/2024 1:23 PM CDT S/P aortic valve replacement with metallic valve Pulmonary HTN (HCC) Hypertension associated with diabetes (HCC) PROTIME-INR Routine 06/23/2024 LIPID PANEL Routine 03/07/2024 11:40 AM DIESEL TECHNOLOGY INSTRUCTOR EGFR Routine 11/23/2017 5:53 AM CDT from Last 3 Months or Most Recently Relevant to Health Maintenance Results * (ABNORMAL) Protime-INR (08/18/2024) INR 2.40(A) 0.90 - 1.10 EXTERNAL LAB Blood Historical Provider MD LAB BLOOD ORDERABLES Yu l Result EXTERNAL LAB * (ABNORMAL) Protime-INR (07/21/2024) INR 2.30(A) 0.90 - 1.10 EXTERNAL LAB Blood 07/21/2024 Historical Provider MD LAB BLOOD ORDERABLES Yu l Result EXTERNAL LAB * TRANSTHORACIC ECHO (TTE) COMPLETE W DOPPLER/CF WO CONTRAST (07/17/2024 1:23 PM CDT) Anatomical Region Laterality Modality Ultrasound 07/17/2024 12:5 9 PM CDT Narrative 07/17/2024 1:[address] [facility] Cardiology [address] [facility] [address], [place] [address] [address], [place] [address] P:[phone] P:[phone] Echocardiographic Report Patient Name: WALTER GALLEGOS L : 1960 Study Date: 07/17/2024 12:59:24 PM Gender: M Tech: Location: [facility] Provider: MECHE MORENO Height(Cm): 183 [...] Site: Exam was interpreted at [facility]. Left Ventricle: Normal left ventricular systolic [...] regurgitation. Electronically Signed By: Dr. Mya Mcdonald [facility] 07/17/2024 1:56:01 PM CDT Procedure Note Mya Mcdonald MD - 07/17/2024 [facility]iology [address] [facility] [address], [place] [address] [address] [facility] [address], [place] [address] P:[phone] P:[phone] Echocardiographic Report Patient Name: WALTER GALLEGOS L : 1960 Study Date: 07/17/2024 12:59:24 PM Gender: M Tech: Location: [facility] Provider: MECHE MORENO Height(Cm): 183 [...] Site: Exam was interpreted at [facility]. Left Ventricle: Normal left ventricular systolic [...] regurgitation. Electronically Signed By: Dr. Mya Mcdonald [facility] 07/17/2024 1:56:01 PM CDT Meche Moreno MD CV ECHO PROCEDURES Final Result * (ABNORMAL) Protime-INR (06/23/2024) Pathologist [facility] INR 2.50(A) 0.90 - 1.10 EXTERNAL LAB Blood Historical Provider LAB BLOOD ORDERABLES Yu singh Result EXTERNAL LAB * Lipid panel (03/07/2024 11:40 AM DIESEL TECHNOLOGY INSTRUCTOR) Pathologist [facility] SCRIBED Cholesterol, Total 157 <200 EXTERNAL LAB SCRIBED HDL 65 >40 EXTERNAL LAB SCRIBED LDL 70 <100 EXTERNAL LAB SCRIBED Triglycerides 110 <150 EXTERNAL LAB Blood Historical Provider LAB BLOOD ORDERABLES Edit ed Result - Final EXTERNAL LAB * eGFR (11/23/2017 5:53 AM CDT) eGFR 94 mL/min/1.7 3 m2 [place] Comment: Interpretive Data Reference Interval Normal >/= 90 mL/min/1.73m2 Mildly decreased* 60 - 89 mL/min/1.73m2 Mildly to moderately decreased 45 - 59 mL/min/1.73m2 Moderately to severely decreased 30 - 44 mL/min/1.73m2 Severely decreased 15 - 29 mL/min/1.73m2 Kidney Failure < 15 mL/min/1.73m2 *Relative to young adult level If -Vietnamese multiply value by 1.16. Estimated glomerular filtration [...] MD LAB BLOOD ORDERABLES Final R esult [facility] [address] [address] Department [place] [address] from Last 3 Months or Most Recently Relevant to Health Maintenance Insurance [facility] [employer] [place] Advance Directives For more information, please contact: [phone] * Full Code (Latest Code Status on File) Date Activated Date Inactivated Comments 11/17/2017 6:54 PM 11/23/2017 6:22 PM Care Teams Audio Visual Tech Relationship Specialty Start Date End Date Albert Cadena DO [address] [place] [address] PCP - General Family Medicine 05/24/20
== END 2024-09-13 14:54 | disposition home or self-care (01) ==
PROVIDERS: PCP Nurse Practitioner Family; Visit Provider Nurse Practitioner Family
DX: E11.9 Type 2 diabetes mellitus without complications (principal); R80.9 Proteinuria, unspecified
CPT/HCPCS: 36415; 80069; 82043; 83036

== ENCOUNTER 2024-12-12 11:12 | Outpatient (CLI) | payer BC, SELFPAY ==
[2024-12-12 11:35] LABS: Hemoglobin A1C 6.6 % (<5.7)
--- OUTSIDE RECORDS SUMMARY | 2024-12-12 13:04 | XMS_ITS | Encounter Summary ---
Author Organization [facility] Healthcare Address [address] [place] [address] Care Team Providers Care Librarian Assistant Name Role Phone Albert Cadena DO Primary Care Provider Encounter Details Date Type Department Care Team ([facility] st Contact Info) Description 01/22/2024 Orders Only [facility] [place] Health Information Management [address] [place] [address] Scanning, Provider Social History Tobacco Use Types Packs/Day Years Used Date Smoking Tobacco: Former Cigarettes Q uit: 2008 Smokeless Tobacco: Never Alcohol Use Standard Drinks/Week Comments Yes 12 (1 standard drink = 0.6 oz pu re alcohol) Sex and Gender Information Value Date Recorded Sex Assigned at Not on file 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 Gender Identity Not on file Sexual Orientation Not on file documented as of this encounter Plan of Treatment Not on file documented as of this encounter Procedures Procedure Name Priority Date/Time Associated Diagnosis Comments SCAN - LABS 01/22/2024 documented in this encounter Results * SCAN - LABS (01/22/2024) us Provider Scanning Final Result documented in this encounter Visit Diagnoses Not on filedocumented in this encounter Care Teams Librarian Assistant Relationship Specialty Start Date End Date Albert Cadena DO [address] [place] [address] PCP - General Family Medicine 05/24/20 documented as of this encounter
--- OUTSIDE RECORDS SUMMARY | 2024-12-12 13:04 | XMS_ITS | Encounter Summary ---
Author Organization [facility] Healthcare Address [address] [place] [address] Care Team Providers Care Trackless Trolley Driver Name Role Phone Albert Cadena DO Primary Care Provider Encounter Details Date Type Department Care Team ([facility] st Contact Info) Description 02/04/2024 Orders Only [facility] [place] Health Information Management [address] [place] [address] Scanning, Provider Social History Tobacco Use Types Packs/Day Years Used Date Smoking Tobacco: Former Cigarettes Q uit: 2009 Smokeless Tobacco: Never Alcohol Use Standard Drinks/Week Comments Yes 12 (1 standard drink = 0.6 oz pu re alcohol) Sex and Gender Information Value Date Recorded Sex Assigned at Not on file 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 Gender Identity Not on file Sexual Orientation Not on file documented as of this encounter Plan of Treatment Not on file documented as of this encounter Procedures Procedure Name Priority Date/Time Associated Diagnosis Comments SCAN - LABS 02/04/2024 documented in this encounter Results * SCAN - LABS (02/04/2024) us Provider Scanning Final Result documented in this encounter Visit Diagnoses Not on filedocumented in this encounter Care Teams Trackless Trolley Driver Relationship Specialty Start Date End Date Albert Cadena DO [address] [place] [address] PCP - General Family Medicine 05/24/20 documented as of this encounter
--- OUTSIDE RECORDS SUMMARY | 2024-12-12 13:04 | XMS_ITS | Encounter Summary ---
Author Organization [facility] Healthcare Address [address] [place] [address] Care Team Providers Care Website Optimization Strategist Name Role Phone Albert Cadena DO Primary Care Provider Encounter Details Date Type Department Care Team ([facility] st Contact Info) Description 05/26/2024 Orders Only [facility] [place] Health Information Management [address] [place] [address] Scanning, Provider Social History Tobacco Use Types Packs/Day Years Used Date Smoking Tobacco: Former Cigarettes Q uit: 2009 Smokeless Tobacco: Never Alcohol Use Standard Drinks/Week Comments Yes 12 (1 standard drink = 0.6 oz pu re alcohol) Sex and Gender Information Value Date Recorded Sex Assigned at Not on file 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 Sex Male 2:18 AM ATTENDANT [facility] Gender Identity Not on file Sexual Orientation Not on file documented as of this encounter Plan of Treatment Not on file documented as of this encounter Procedures Procedure Name Priority Date/Time Associated Diagnosis Comments SCAN - LABS 05/26/2024 documented in this encounter Results * SCAN - LABS (05/26/2024) us Provider Scanning Final Result documented in this encounter Visit Diagnoses Not on filedocumented in this encounter Care Teams Website Optimization Strategist Relationship Specialty Start Date End Date Albert Cadena DO [address] [place] [address] PCP - General Family Medicine 05/24/20 documented as of this encounter
--- OUTSIDE RECORDS SUMMARY | 2024-12-12 13:04 | XMS_ITS | Encounter Summary ---
Author Organization [facility] Healthcare Address [address] [place] [address] Care Team Providers Care Able Bodied Watchman Name Role Phone Albert Cadena DO Primary Care Provider Encounter Details Date Type Department Care Team ([facility] st Contact Info) Description 03/06/2024 Orders Only [facility] [place] Health Information Management [address] [place] [address] Scanning, Provider Social History Tobacco Use Types Packs/Day Years Used Date Smoking Tobacco: Former Cigarettes Q uit: 2009 Smokeless Tobacco: Never Alcohol Use Standard Drinks/Week Comments Yes 12 (1 standard drink = 0.6 oz pu re alcohol) Sex and Gender Information Value Date Recorded Sex Assigned at Not on file 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 Gender Identity Not on file Sexual Orientation Not on file documented as of this encounter Plan of Treatment Not on file documented as of this encounter Procedures Procedure Name Priority Date/Time Associated Diagnosis Comments SCAN - LABS 03/06/2024 documented in this encounter Results * SCAN - LABS (03/06/2024) us Provider Scanning Final Result documented in this encounter Visit Diagnoses Not on filedocumented in this encounter Care Teams Able Bodied Watchman Relationship Specialty Start Date End Date Albert Cadena DO [address] [place] [address] PCP - General Family Medicine 05/24/20 documented as of this encounter
--- OUTSIDE RECORDS SUMMARY | 2024-12-12 13:04 | XMS_ITS | Encounter Summary ---
Author Organization [facility] Healthcare Address [address] [place] [address] Care Team Providers Care Screening Technician Name Role Phone Tavo Johnson MD Primary Care Provider [phone] Piter Urrutia MD Primary Care Provider [phone] Albert Cadena DO Primary Care Provider Encounter Details Date Type Department Care Team (Late st Contact Info) Description 02/28/2018 Orders Only [facility] [place] Information Management [address] [place] [address] Scanning, Provider Social History Tobacco Use Types Packs/Day Years Used Date Smoking Tobacco: Former Cigarettes Q uit: 2009 Smokeless Tobacco: Never Alcohol Use Standard Drinks/Week Comments Yes 18 (1 standard drink = 0.6 oz pu re alcohol) Sex and Gender Information Value Date Recorded Sex Assigned at Not on file 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
--- OUTSIDE RECORDS SUMMARY | 2024-12-12 13:04 | XMS_ITS | Encounter Summary ---
Author Organization [facility] Healthcare Address [address] [place] [address] Care Team Providers Care Almond Sorter Name Role Phone Tavo Johnson MD Primary Care Provider [phone] Piter Urrutia MD Primary Care Provider [phone] Albert Cadena DO Primary Care Provider Encounter Details Date Type Department Care Team (Late st Contact Info) Description 09/16/2017 Orders Only [facility] [place] Health Information Management [address] [place] [phone] Scanning, Provider Social History Tobacco Use Types Packs/Day Years Used Date Smoking Tobacco: Former Smokeless Tobacco: Never Alcohol Use Standard Drinks/Week Comments Yes 0 (1 standard drink = 0.6 oz pur e alcohol) Sex and Gender Information Value Date Recorded Sex Assigned at Not on file 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 Sex Male 2:18 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 Gender Identity Not on file Sexual Orientation Not on file documented as of this encounter Plan of Treatment Not on file documented as of this encounter Procedures Procedure Name Priority Date/Time Associated Diagnosis Comments SCAN - LABS 09/16/2017 documented in this encounter Results * SCAN - LABS (09/16/2017) us Provider Scanning Final Result documented in this encounter Visit Diagnoses Not on filedocumented in this encounter Care Teams Almond Sorter Relationship Specialty Start Date End Date Tavo Johnson MD [address] [place] [address] PCP - General 12/31/15 10/10/18 Piter Urrutia MD [address] [place] [address] PCP - General Family Medicine 10/11/18 05/23/20 Albert Cadena DO [address] [place] [address] PCP - General Family Medicine 05/24/20 documented as of this encounter
--- OUTSIDE RECORDS SUMMARY | 2024-12-12 13:04 | XMS_ITS | Encounter Summary ---
Author Organization [facility] Healthcare Address [address] [place] [address] Care Team Providers Care Credit Controller Name Role Phone Albert Cadena DO Primary Care Provider Encounter Details Date Type Department Care Team ([facility] st Contact Info) Description 03/31/2024 Orders Only [facility] [place] Information Management [address] [place] [address] Scanning, Provider Social History Tobacco Use Types Packs/Day Years Used Date Smoking Tobacco: Former Cigarettes Q uit: 2009 Smokeless Tobacco: Never Alcohol Use Standard Drinks/Week Comments Yes 12 (1 standard drink = 0.6 oz pu re alcohol) Sex and Gender Information Value Date Recorded Sex Assigned at Not on file 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 Gender Identity Not on file Sexual Orientation Not on file documented as of this encounter Plan of Treatment Not on file documented as of this encounter Procedures Procedure Name Priority Date/Time Associated Diagnosis Comments SCAN - LABS 03/31/2024 documented in this encounter Results * SCAN - LABS (03/31/2024) us Provider Scanning Final Result documented in this encounter Visit Diagnoses Not on filedocumented in this encounter Care Teams Credit Controller Relationship Specialty Start Date End Date Albert Cadena DO [address] [place] [address] PCP - General Family Medicine 05/24/20 documented as of this encounter
--- OUTSIDE RECORDS SUMMARY | 2024-12-12 13:04 | XMS_ITS | Encounter Summary ---
Author Organization [facility] Healthcare Address [address] [place] [address] Care Team Providers Care Contract Lead Name Role Phone Albert Cadena DO Primary Care Provider Encounter Details Date Type Department Care Team ([facility] st Contact Info) Description 04/28/2024 Orders Only [facility] [place] Health Information Management [address] [place] [address] Scanning, Provider Social History Tobacco Use Types Packs/Day Years Used Date Smoking Tobacco: Former Cigarettes Q uit: 2009 Smokeless Tobacco: Never Alcohol Use Standard Drinks/Week Comments Yes 12 (1 standard drink = 0.6 oz pu re alcohol) Sex and Gender Information Value Date Recorded Sex Assigned at Not on file 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 Gender Identity Not on file Sexual Orientation Not on file documented as of this encounter Plan of Treatment Not on file documented as of this encounter Procedures Procedure Name Priority Date/Time Associated Diagnosis Comments SCAN - LABS 04/28/2024 documented in this encounter Results * SCAN - LABS (04/28/2024) us Provider Scanning Final Result documented in this encounter Visit Diagnoses Not on filedocumented in this encounter Care Teams Contract Lead Relationship Specialty Start Date End Date Albert Cadena DO [address] [place] [address] PCP - General Family Medicine 05/24/20 documented as of this encounter
--- OUTSIDE RECORDS SUMMARY | 2024-12-12 13:04 | XMS_ITS | Encounter Summary ---
Author Organization [facility] Healthcare Address [address] [place] [address] Care Team Providers Care Inclined Railway Operator Name Role Phone Albert Cadena DO Primary Care Provider Encounter Details Date Type Department Care Team ([facility] st Contact Info) Description 06/23/2024 Orders Only [facility] [place] Health Information Management [address] [place] [address] Scanning, Provider Social History Tobacco Use Types Packs/Day Years Used Date Smoking Tobacco: Former Cigarettes Q uit: 2009 Smokeless Tobacco: Never Alcohol Use Standard Drinks/Week Comments Yes 12 (1 standard drink = 0.6 oz pu re alcohol) Sex and Gender Information Value Date Recorded Sex Assigned at Not on file Legal Sex Male 2:18 AM 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 PUMPER Gender Identity Not on file Sexual Orientation Not on file documented as of this encounter Plan of Treatment Not on file documented as of this encounter Procedures Procedure Name Priority Date/Time Associated Diagnosis Comments SCAN - LABS 06/23/2024 documented in this encounter Results * SCAN - LABS (06/23/2024) us Provider Scanning Final Result documented in this encounter Visit Diagnoses Not on filedocumented in this encounter Care Teams Inclined Railway Operator Relationship Specialty Start Date End Date Albert Cadena DO [address] [place] [address] PCP - General Family Medicine 05/24/20 documented as of this encounter
--- OUTSIDE RECORDS SUMMARY | 2024-12-12 13:04 | XMS_ITS | Encounter Summary ---
Author Organization [facility] Healthcare Address [address] [place] [address] Care Team Providers Care Medical Office Technician Name Role Phone Albert Cadena DO Primary Care Provider Encounter Details Date Type Department Care Team ([facility] st Contact Info) Description 09/23/2024 Orders Only [facility] [place] Health Information Management [address] [place] [phone] Scanning, Provider Social History Tobacco Use Types Packs/Day Years Used Date Smoking Tobacco: Former Cigarettes Q uit: 2009 Smokeless Tobacco: Never Alcohol Use Standard Drinks/Week Comments Yes 12 (1 standard drink = 0.6 oz pu re alcohol) Sex and Gender Information Value Date Recorded Sex Assigned at Not on file Legal Sex Male 2:18 AM BREAKER BOSS Gender Identity Not on file Sexual Orientation Not on file documented as of this encounter Plan of Treatment Not on file documented as of this encounter Procedures Procedure Name Priority Date/Time Associated Diagnosis Comments SCAN - LABS 09/23/2024 documented in this encounter Results * SCAN - LABS (09/23/2024) us Provider Scanning Final Result documented in this encounter Visit Diagnoses Not on filedocumented in this encounter Care Teams Medical Office Technician Relationship Specialty Start Date End Date Albert Cadena DO [address] [place] [address] PCP - General Family Medicine 05/24/20 documented as of this encounter
--- OUTSIDE RECORDS SUMMARY | 2024-12-12 13:04 | XMS_ITS | Encounter Summary ---
Author Organization [facility] Healthcare Address [address] [place] [address] Care Team Providers Care Equity Research Analyst Name Role Phone Albert Cadena DO Primary Care Provider Encounter Details Date Type Department Care Team ([facility] st Contact Info) Description 08/18/2024 Orders Only [facility] Health Information Management [address] [place] [id number] Scanning, Provider Social History Tobacco Use Types Packs/Day Years Used Date Smoking Tobacco: Former Cigarettes Q uit: 2009 Smokeless Tobacco: Never Alcohol Use Standard Drinks/Week Comments Yes 12 (1 standard drink = 0.6 oz pu re alcohol) Sex and Gender Information Value Date Recorded Sex Assigned at Not on file 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 Gender Identity Not on file Sexual Orientation Not on file documented as of this encounter Plan of Treatment Not on file documented as of this encounter Procedures Procedure Name Priority Date/Time Associated Diagnosis Comments SCAN - LABS 08/18/2024 documented in this encounter Results * SCAN - LABS (08/18/2024) us Provider Scanning Final Result documented in this encounter Visit Diagnoses Not on filedocumented in this encounter Care Teams Equity Research Analyst Relationship Specialty Start Date End Date Albert Cadena DO [address] [place] [address] PCP - General Family Medicine 05/24/20 documented as of this encounter
--- OUTSIDE RECORDS SUMMARY | 2024-12-12 13:04 | XMS_ITS | Encounter Summary ---
Author Organization [facility] Healthcare Address [address] [place] [address] Care Team Providers Care Life Skills Coordinator Name Role Phone Albert Cadena DO Primary Care Provider Encounter Details Date Type Department Care Team ([facility] st Contact Info) Description 12/10/2023 Orders Only [facility] Health Information Management [address] [place] [id number] Scanning, Provider Social History Tobacco Use Types Packs/Day Years Used Date Smoking Tobacco: Former Cigarettes Q uit: 2008 Smokeless Tobacco: Never Alcohol Use Standard Drinks/Week Comments Yes 12 (1 standard drink = 0.6 oz pu re alcohol) Sex and Gender Information Value Date Recorded Sex Assigned at Not on file Legal Sex Male 2:18 AM 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 Gender Identity Not on file Sexual Orientation Not on file documented as of this encounter Plan of Treatment Not on file documented as of this encounter Procedures Procedure Name Priority Date/Time Associated Diagnosis Comments SCAN - LABS 12/10/2023 documented in this encounter Results * SCAN - LABS (12/10/2023) us Provider Scanning Final Result documented in this encounter Visit Diagnoses Not on filedocumented in this encounter Care Teams Life Skills Coordinator Relationship Specialty Start Date End Date Albert Cadena DO [address] [place] [address] PCP - General Family Medicine 05/24/20 documented as of this encounter
--- OUTSIDE RECORDS SUMMARY | 2024-12-12 13:04 | XMS_ITS | Clinical Summary ---
Author Organization [facility] [address] Address [address] [place] [address] Care Team Providers Care Keyboard Specialist Name Role Phone Albert Cadena DO Primary Care Provider Allergies No known active allergies Medications aspirin 81 mg tablet take 1 tablet by oral route every day 0 0 7 Active rosuvastatin (CRESTOR) 40 mg tablet Take 1 tablet (40 mg total) by mouth daily. 30 tablet 11 9 Active metFORMIN (GLUCOPHAGE) 500 mg tablet Take 1 tablet (500 mg total) by mouth daily 9 Active empagliflozin (JARDIANCE) 25 mg tablet 1 tablet (25 mg total) 4 Active semaglutide (Ozempic) 0.25 mg or 0.5 mg(2 mg/1.5 mL) pen injector injection 4 Active warfarin (COUMADIN) 5 mg tabletIndicatio ns:S/P aortic valve replacement with metallic valve TAKE ONE TABLET BY MOUTH DAILY 30 tablet 1 5 Active warfarin (COUMADIN) 5 mg tabletIndicatio ns:S/P aortic valve replacement with metallic valve TAKE ONE TABLET BY MOUTH DAILY 30 tablet 1 5 11/23/19 25 Discontinued Active Problems Problem Noted Date Diagnosed Date Pulmonary HTN 04/17/2019 H/O bicuspid aortic valve 04/17/2019 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 Cardiology [address] [place] [address] Susanne Rhodes RN S/P aortic valve replacement with metallic valve (Primary Dx) 10/20/2024 Orders Only [facility] Health Information Management [address] [place] [address] Scanning, Provider 10/20/2024 Anticoagulation Visit [facility] Cardiology [address] [place] [phone] Susanne Rhodes RN S/P aortic valve replacement with metallic valve (Primary Dx) 09/25/2024 Anticoagulation Visit [facility] Cardiology [address] [place] [address] Supriya Cisneros RN S/P aortic valve replacement with metallic valve (Primary Dx) 09/23/2024 Orders Only [facility] Health Information Management [address] [place] [id number] Scanning, Provider from Last 3 Months Surgical History Surgery Date Site/Laterality Comments CT CHEST TUBE INSERTION LEFT 11/19/2017 N/A CARDIAC VALVE REPLACEMENT [id number] Medical History Medical History Date Comments Hx Other Medical Valvular Heart Disease severe Hypertension Hypertension Fracture of forearm, closed no s ugery, anesthesia used to set fracture and cast. 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 Gender Identity Not on file Sexual Orientation [...] 11/04, 11/21/2017, Additional history exists Influenza Vaccine (#1) 2024 03/14/2019 Lipid Panel 03/07/2025 03/07/2024, 0307/2023, 05/29/2022, Additional history exists Medical Devices Implanted Type Area Communications Systems Engineer Device Identifier Shelf Expiration Date Model / Serial / Lot Medtronic Card Vasc Surgery [id number] Streamline 53cm Temporary Bipolar Coaxial Myocardium Lead Pacing Latex Free - [id number] Implanted:Qty: 1 on 11/17/2017 by Andrew Turner MD at [facility] Other - see comments N/A: Heart Medtronic Card Vasc Surgery 06/11/2019 [id number] / / Valve Aortic On-X Conform-X Titanium Carbon Ptfe Od30 Mm Cylindrical H11.9 Mm H14.7 Mm Od21 Mm Odsec19.4 Mm Heart Mechanical Sewing Ring Extend Yee Intrasupra Annular - [id number] - [id number] Implanted:Qty: 1 on 11/17/2017 by Andrew Turner MD at [facility] Prosthetic Valve N/A: Heart On-X Intrnl 01/20/2023 [id number] / [id number] / Description:Aortic valve Procedures Procedure Name Priority Date/Time Associated Diagnosis Comments SCAN - LABS 11/15/2024 PROTIME-INR Routine 11/15/2024 SCAN - LABS 10/20/2024 PROTIME-INR Routine 10/20/2024 SCAN - LABS 09/23/2024 PROTIME-INR Routine 09/23/2024 LIPID PANEL Routine 03/07/2024 11:40 AM ADJUNCT FACULTY MATHEMATICS DEPARTMENT EGFR Routine 11/23/2017 5:53 AM CDT from Last 3 Months or Most Recently Relevant to Health Maintenance Results * SCAN - LABS (11/15/2024) us Provider Scanning Final Result * (ABNORMAL) Protime-INR (11/15/2024) INR 2.30(A) 0.90 - 1.10 EXTERNAL LAB Blood Result [facility] Provider MD LAB BLOOD ORDERABLES Yu l Result Performing Organization Address [facility] [address]/[facility] Co de Phone Number EXTERNAL LAB * SCAN - LABS (10/20/2024) Provider Scanning Final Result * (ABNORMAL) Protime-INR (10/20/2024) INR 2.50(A) 0.90 - 1.10 EXTERNAL LAB Blood Result [facility] Provider MD LAB BLOOD ORDERABLES Yu l Result Performing Organization Address City/[facility] [address]/[facility] Co de Phone Number EXTERNAL LAB * SCAN - LABS (09/23/2024) Provider Scanning Final Result * (ABNORMAL) Protime-INR (09/23/2024) INR 2.50(A) 0.90 - 1.10 EXTERNAL LAB Blood Result [facility] Historical Provider MD LAB BLOOD ORDERABLES Yu l Result Performing Organization Address [facility]/State/ZIP Co de Phone Number EXTERNAL LAB * Lipid panel (03/07/2024 11:40 AM ADJUNCT FACULTY MATHEMATICS DEPARTMENT) SCRIBED Cholesterol, Total 157 <200 EXTERNAL LAB SCRIBED HDL 65 >40 EXTERNAL LAB SCRIBED LDL 70 <100 EXTERNAL LAB SCRIBED Triglycerides 110 <150 EXTERNAL LAB Blood Historical Provider LAB BLOOD ORDERABLES Edit ed Result - Final EXTERNAL LAB * eGFR (11/23/2017 5:53 AM CDT) eGFR 94 mL/min/1.7 3 m2 [facility] Comment: Interpretive Data Reference Interval Normal >/= 90 mL/min/1.73m2 Mildly decreased* 60 - 89 mL/min/1.73m2 Mildly to moderately decreased 45 - 59 mL/min/1.73m2 Moderately to severely decreased 30 - 44 mL/min/1.73m2 Severely decreased 15 - 29 mL/min/1.73m2 Kidney Failure < 15 mL/min/1.73m2 *Relative to young adult level If -[place] multiply value by 1.16. Estimated glomerular filtration [...] MD LAB BLOOD ORDERABLES Final R esult [facility] [address] Jaime Holman Department [place] [address] from Last 3 Months or Most Recently Relevant to Health Maintenance Insurance [facility] [place] Advance Directives For more information, please contact: [phone] * Full Code (Latest Code Status on File) Date Activated Date Inactivated Comments 11/17/2017 6:54 PM 11/23/2017 6:22 PM Care Teams Keyboard Specialist Relationship Specialty Start Date End Date Albert Cadena DO [address] [place] [address] PCP - General Family Medicine 05/24/20
--- OUTSIDE RECORDS SUMMARY | 2024-12-12 13:04 | XMS_ITS | Encounter Summary ---
Author Organization [facility] Healthcare Address [address] [place] [address] Care Team Providers Care Recreational Vehicle Repairer Name Role Phone Albert Cadena DO Primary Care Provider Encounter Details Date Type Department Care Team ([facility] st Contact Info) Description 12/24/2023 Orders Only [facility] [place] Health Information Management [address] [place] [address] Scanning, Provider Social History Tobacco Use Types Packs/Day Years Used Date Smoking Tobacco: Former Cigarettes Q uit: 2008 Smokeless Tobacco: Never Alcohol Use Standard Drinks/Week Comments Yes 12 (1 standard drink = 0.6 oz pu re alcohol) Sex and Gender Information Value Date Recorded Sex Assigned at Not on file Legal Sex Male 2:18 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 Gender Identity Not on file Sexual Orientation Not on file documented as of this encounter Plan of Treatment Not on file documented as of this encounter Procedures Procedure Name Priority Date/Time Associated Diagnosis Comments SCAN - LABS 12/24/2023 documented in this encounter Results * SCAN - LABS (12/24/2023) us Provider Scanning Final Result documented in this encounter Visit Diagnoses Not on filedocumented in this encounter Care Teams Recreational Vehicle Repairer Relationship Specialty Start Date End Date Albert Cadena DO [address] [place] [address] PCP - General Family Medicine 05/24/20 documented as of this encounter
== END 2024-12-12 11:13 | disposition home or self-care (01) ==
LOC: CHSLAB 11:13
PROVIDERS: PCP Nurse Practitioner Family; Visit Provider Nurse Practitioner Family
DX: E11.9 Type 2 diabetes mellitus without complications (principal)
CPT/HCPCS: 36415; 83036